=== PATIENT | male | born 1940 | race Caucasian/White ===

== ENCOUNTER 2024-07-09 22:15 | Emergency (ER) | payer OTHER, SELFPAY ==
[2024-07-09 22:21] VITALS: BP 121/53; PULSE 65; RESP 18; TEMP 36.4; O2SAT 96
--- NOTE | 2024-07-09 22:32 | ED.ABDPAIN ---
HPI - Abdominal Pain General Chief Complaint: Abdominal Pain Stated Complaint: Constipation Source: patient Mode of arrival: ambulatory Limitations: no limitations History of Present Illness HPI narrative: 84-year-old male nonsmoker with a history of hypertension, diabetes mellitus, CHF, status post ICD, recently diagnosed prostate cancer with bone Mets, 2 weeks ago presents to the ED with -- right lower quadrant abdominal pain. pain is intermittent. No fever or chills. No nausea/vomiting. --One episode of diarrhea today. No chest pain or shortness of breath MD elicited complaint: abdominal pain Onset (ago): week(s) ( 2 weeks) Pain Consistency: intermittent Location: RLQ Severity: mild Quality: aching Radiation: none Exacerbating factors: nothing Relieving factors: nothing Associated symptoms: denies other symptoms and diarrhea Related Data Home Medications Medication Instructions Recorded Confirmed acetaminophen 500 mg tablet 500 mg PO BID 07/09/24 07/09/24 atenolol 100 mg tablet 100 mg PO DAILY 07/09/24 07/10/24 atorvastatin 40 mg tablet 40 mg PO HS 07/09/24 07/10/24 budesonide 0.5 mg/2 mL suspension 0.5 mg inhalation BID 07/09/24 07/10/24 for nebulization cetirizine 10 mg tablet 10 mg PO DAILY 07/09/24 07/10/24 clopidogrel 75 mg tablet 75 mg PO DAILY 07/09/24 07/10/24 diclofenac sodium 1 % topical gel 4 g topical QID 07/09/24 07/10/24 diltiazem HCl 240 mg capsule,24 240 mg PO QAM 07/09/24 07/10/24 hr,extended release dupilumab 300 mg/2 mL subcutaneous 300 mg subcut DIRECTED 07/09/24 07/10/24 syringe fluticasone propionate 50 2 spray intranasal BID 07/09/24 07/10/24 mcg/actuation nasal spray,suspension furosemide 40 mg tablet 60 mg PO QAM 07/09/24 07/10/24 ipratropium 20 mcg-albuterol 100 1 puff inhalation PRN PRN BREATHING 07/09/24 07/10/24 mcg/actuation mist for inhalation mometasone 220 mcg/actuation(60 2 inh inhalation QPM 07/09/24 07/10/24 doses) breath activated powder inhaler montelukast 10 mg tablet 10 mg PO QPM 07/09/24 07/10/24 nitroglycerin 6.5 mg 6.5 mg PO BID 07/09/24 07/10/24 capsule,extended release omeprazole 20 mg capsule,delayed 20 mg PO DAILY 07/09/24 07/10/24 release potassium chloride 20 mEq 20 meq PO DAILY 07/09/24 07/10/24 tablet,extended release sodium chloride, sodium 1 ea DAILY 07/09/24 07/10/24 bicarb-nasal rinse squeeze bottle with packet (Neilmed Sinus Rinse Complete with packet) tamsulosin 0.4 mg capsule 0.4 mg PO HS 07/09/24 07/10/24 valsartan 160 mg tablet 160 mg PO DAILY 07/09/24 07/10/24 Allergies Allergy/AdvReac Type Severity Reaction Status Date / Time lisinopril Allergy Hives Verified 07/09/24 22:37 Penicillins Allergy Hives Verified 07/09/24 22:37 [facility] Past Medical History Medical History (Updated 07/10/24 @ 00:21 by Valentin Moore MD) BPH (benign prostatic hyperplasia) CHF (congestive heart failure) Dyslipidemia Hypertension ICD (implantable cardioverter-defibrillator) battery depletion Surgical History Surgical History (Updated 07/10/24 @ 00:19 by Valentin Moore MD) Hx of appendectomy Social History Social History (Updated 07/09/24 @ 22:59 by Valentin Moore MD) Social History: nonsmoker Exam Const: General: no acute distress Orientation/consciousness: patient oriented x3 Other: Confused HENMT: Head: normal to inspection Ears: external ears normal Face/Nose/Sinus: Normal external nose present Face and sinus: normal facial exam Mouth: Yes Normal oral and palatal mucosa present Throat: posterior oropharynx normal Eyes: Conjunctivae: conjunctivae normal Pupils: Equal, round and reactive pupils present EOM: EOMs intact bilaterally Neck: Neck: normal visual inspection Chest: Chest palpation & inspection: normal inspection of the chest Resp: Auscultation: diminished lung sounds Cardio: Rate: regular rate GI: GI Palp: Yes Soft to palpation Auscultation: normal vanesa
[2024-07-09 23:26] LABS: Add Urine Microscopic? YES; Appearance Urine Clear (Clear); Bilirubin Urine Negative (Negative); Blood Urine Trace-intact (Negative); Color Urine Light Yellow (Yellow); Glucose Urine UA Negative (Negative); Hematocrit 35.5 % (37.0-46.0); Hemoglobin 11.6 g/dL (12.4-15.3); Ketones Urine Trace (Negative); Leukocyte Esterase Ur Trace LEU/UL (Negative); Mean Corpuscular HGB Conc 32.7 g/dL (32-36); Mean Corpuscular Hemoglobin 30.9 pg (27.0-31.0); Mean Corpuscular Volume 94.7 fL (78.0-102.0); Mean Platelet Volume 9.5 fl (8.7-11.0); Nitrate Urine Negative (Negative); Platelet Count Result 197 K/mm3 (150-420); Protein Urine Negative (Negative); Red Blood Count 3.75 M/mm3 (4.70-6.10); Red Cell Distribution Width 14.9 % (11.6-14.4); Specific Grav Ur 1.025 (1.010-1.020); White Blood Count 9.6 K/mm3 (4.8-10.8); pH Urine 5.5 (5.0-8.0)
[2024-07-09 23:32] VITALS: BP 132/59; PULSE 64; RESP 18; O2SAT 96
[2024-07-09 23:33] VITALS: BP 132/59; PULSE 67; RESP 18; O2SAT 97
[2024-07-09 23:34] LABS: Bacteria Urine Trace /hpf; RBC Urine 0-2 /hpf (0-2); Squamous Epithelial Cell Urine Rare /hpf (Few); WBC Urine 0-3 /hpf (0-3)
[2024-07-09 23:40] LABS: Prothrombin Time 10.9 Seconds (9.50-12.1)
[2024-07-09 23:43] LABS: Alanine Aminotransferase 26 U/L (16-63); Albumin Level 2.7 g/dL (3.4-5.0); Anion Gap 9 mmol/L (4-12); Aspartate Amino Transferase 35 U/L (15-37); Bilirubin,Total 0.7 mg/dL (0.00-1.00); Blood Urea Nitrogen 14 mg/dL (7-18); Calcium 8.6 mg/dL (8.5-10.1); Carbon Dioxide 26 mmol/L (21-32); Chloride 96 mmol/L (98-108); Estimated CRCL calculation 52 ml/min; Estimated Glomerular Filt Rate 60; Glucose 114 mg/dL (70-99); Lipase 22 U/L (16-77); Osmolality Calculated 273 mOsm/kg (285-295); Potassium 4.1 mmol/L (3.5-5.1); Sodium 131 mmol/L (136-145); Total Protein 6.2 g/dL (6.4-8.2)
[2024-07-09 23:46] LABS: Lactic Acid Reflex 0.7 mmol/L (0.4-2.0)
[2024-07-09 23:48] LABS: Band Neutrophils Percent 2 % (0-6); Basophils Percent Manual 0 % (0-1); Eosinophils Percent Manual 0 % (1-6); Lymphocytes Absolute Manual 1.44 K/mm3 (1.1-4.5); Lymphocytes Percent Manual 15 % (18-44); Metamyelocytes Percent 1 %; Monocytes Absolute Manual 0.96 K/mm3 (0.1-0.90); Monocytes Percent Manual 10 % (3-9); Neutrophils Percent Manual 72 % (46-73); Platelet Estimate Adequate (Adequate); Total Cells Counted 100
[2024-07-09 23:57] LABS: Alkaline Phosphatase 334 U/L (46-116)
[2024-07-10 00:01] VITALS: BP 136/61; PULSE 64; RESP 18; O2SAT 96
[2024-07-10] MEDS: HYDROcodone/acetaminophen (*CRX) 5-325 MG TABLET 1 TAB PO (00:25)
== END 2024-07-10 00:40 | disposition home or self-care (01) ==
PROVIDERS: Emergency Provider Internal Medicine Critical Care Medicine
DX: R10.31 Right lower quadrant pain (principal); I11.0 Hypertensive heart disease with heart failure; I50.9 Heart failure, unspecified; E11.9 Type 2 diabetes mellitus without complications; C61 Malignant neoplasm of prostate; C79.51 Secondary malignant neoplasm of bone; E78.5 Hyperlipidemia, unspecified; Z79.899 Other long term (current) drug therapy
CPT/HCPCS: 36415; 80053; 81001; 83605; 83690; 85025; 85610; 99283; A9270